=== PATIENT | male | born 1995 | race African-American/Black ===

== ENCOUNTER 2020-08-14 11:04 | Outpatient (CLI) | payer OTHER, SELFPAY | END 2020-08-14 11:05 | disposition home or self-care (01) | LOC: ANHCOVIDVC 11:04 | PROVIDERS: PCP Internal Medicine | DX: Z23 Encounter for immunization (principal) | CPT/HCPCS: 0001A; 91300 ==

== ENCOUNTER 2020-09-04 11:49 | Outpatient (CLI) | payer OTHER, SELFPAY | END 2020-09-04 11:50 | LOC: ANHCOVIDVC 11:49 | PROVIDERS: PCP Internal Medicine | DX: Z23 Encounter for immunization (principal) | CPT/HCPCS: 0002A; 91300 ==

== ENCOUNTER 2020-11-08 12:44 | Emergency (ER) | payer OTHER, SELFPAY ==
[2020-11-08 12:50] VITALS: BP 139/79; PULSE 82; RESP 16; TEMP 36.7; O2SAT 99
--- NOTE | 2020-11-08 12:53 | ED.GENADULT ---
HPI - General Adult General Chief complaint: Ear Stated complaint: ear Source: patient Mode of arrival: ambulatory Limitations: no limitations History of Present Illness HPI narrative: Patient is a 25-year-old -[place]ian male who presents to the urgent care via POV for evaluation of bilateral ear pain that is been present for approximately 20 days. Patient reports ear pain is constant and describes it as fullness with intermittent sharp pain. He also reports an intermittent buzzing or ringing sound and feeling off balance since onset. No relief with Claritin. Nothing improves or worsen symptoms. Of note, patient reports seeing his doctor, Dr. Gagnon, who prescribed him 10-day course of doxycycline for current symptoms. Patient denies improvement after finishing entire course of antibiotic treatment. Denies follow-up with PCP stating, it is just too hard to get in to him . Patient denies a history of allergic rhinitis or chronic ear problems. Related Data Home Medications Medication Instructions Recorded Confirmed No Home Medications 11/08/20 11/08/20 Allergies Allergy/AdvReac Type Severity Reaction Status Date / Time No Known Allergies Allergy Verified 11/08/20 12:45 Review of Systems Review of Systems: Narrative: CONSTITUTIONAL: Denies fever, chills, or sweats. EYES: Denies visual changes, redness, or discharge. ENT: Denies rhinorrhea, congestion, sore throat, ear drainage, decreased hearing, vertigo CARDIOVASCULAR: Denies chest pain, palpitations, or edema. RESPIRATORY: Denies cough or dyspnea. GASTROINTESTINAL: Denies abdominal pain, nausea, vomiting, or diarrhea. GENITOURINARY: Denies dysuria or hematuria. SKIN: Denies rash or itching. MUSCULOSKELETAL: Denies back pain, joint pain, or myalgia. NEUROLOGIC: Denies headache, numbness, or weakness. PSYCHIATRIC: Denies anxiety or depression. PMFSH Social History Social History Gender identity (if verbalized by the patient): Male Comments I have reviewed and agree with the patient's past medical, surgical, social, and family hx as documented by the RN. There is no relevant family history pertinent to the presenting complaint. Exam Narrative: Exam Narrative: GENERAL: Well-appearing, well-nourished, and in no acute distress. HEAD: Normocephalic, atraumatic. EYES: PERRLA and EOMI. ENT: Nares clear, no rhinorrhea or epistaxis. Mucous membranes moist. Oropharynx is without erythema, swelling, obstruction, mass, and exudate. Bilateral TMs are pearly hawkins. No evidence of bulging, erythema, or fluid. External ear canals are clear. No evidence of otitis externa. NECK: Supple. No lymphadenopathy. CHEST: Clear to auscultation. No respiratory distress. No evidence of cough upon examination. HEART: Regular rate and rhythm. No murmur heard. Normal peripheral pulses. ABDOMEN: Soft, nontender, nondistended, normal active bowel sounds. EXTREMITIES: Normal range of motion. No edema. SKIN: Warm, dry, no rash. NEURO: No focal deficits. Alert and oriented x3. Course Course Emergency Course: Refused prescription for prednisone. Vital Signs Vital signs: Vital Signs Temperature 98.1 F 11/08/20 12:50 Pulse Rate 82 11/08/20 12:50 Respiratory Rate 16 11/08/20 12:50 Blood Pressure 139/79 11/08/20 12:50 Pulse Oximetry 99 11/08/20 12:50 Temperature 98.1 F 11/08/20 12:50 Pulse Rate 82 11/08/20 12:50 Respiratory Rate 16 11/08/20 12:50 Blood Pressure 139/79 11/08/20 12:50 Pulse Oximetry 99 11/08/20 12:50 Reviewed. Due to an elevated blood pressure, I had a detailed discussion with the patient and/or guardian regarding the need for follow-up with their primary care provider within the next 3-4 days. Patient verbalized understanding and agreed. Medical Decision Making Differential Diagnosis Differential Diagnosis: Otitis externa, barotrauma, eustachian tube dysfunction, AOM, O
== END 2020-11-08 13:25 | disposition home or self-care (01) ==
PROVIDERS: Emergency Provider Nurse Practitioner Family; PCP Internal Medicine
DX: H69.93 Unspecified Eustachian tube disorder, bilateral (principal)
CPT/HCPCS: 99211; G0463

== ENCOUNTER → 2021-04-09 10:55 | Outpatient (CLI) | payer OTHER, SELFPAY ==
--- NOTE | ~2021-04-09 | MR_ITS ---
EXAMINATION: MR cervical spine wo con DATE: 04/09/2021 11:33 INDICATION: Neck pain. Injury. TECHNIQUE: Magnetic resonance imaging (MRI) of the cervical spine was performed without intravenous c ontrast. Sequences included sagittal T2-weighted FSE, sagittal STIR FSE, sagittal T1-weighted FSE, ax ial MERGE, and axial T2-weighted FSE. COMPARISON: None FINDINGS: There is hypolordosis of cervical spine. Vertebral body heights and intervertebral disc hei ghts are normal. The spinal cord signal intensity is normal. The following disc levels are specifical ly discussed: C2-C3: The disc does not extend beyond the endplate margin. There is no uncovertebral joint osteoarth ritis. There is no facet joint osteoarthritis. There is no neural foraminal stenosis. There is no jhony tral canal stenosis. C3-C4: The disc does not extend beyond the endplate margin. There is no uncovertebral joint osteoarth ritis. There is no facet joint osteoarthritis. There is no neural foraminal stenosis. There is no jhony tral canal stenosis. C4-C5: The disc does not extend beyond the endplate margin. There is mild left uncovertebral joint os teoarthritis. There is no facet joint osteoarthritis. There is mild left neural foraminal stenosis. T here is no central canal stenosis. C5-C6: There is a left central protrusion. There is mild bilateral uncovertebral joint osteoarthritis . There is no facet joint osteoarthritis. There is mild bilateral neural foraminal stenosis. There is mild central canal stenosis. C6-C7: The disc does not extend beyond the endplate margin. There is no uncovertebral joint osteoarth ritis. There is no facet joint osteoarthritis. There is no neural foraminal stenosis. There is no jhony tral canal stenosis. C7-T1: The disc does not extend beyond the endplate margin. There is no uncovertebral joint osteoarth ritis. There is no facet joint osteoarthritis. There is no neural foraminal stenosis. There is no jhony tral canal stenosis. IMPRESSION: 1. Mild cervical spondylosis. Reviewed, dictated and finalized at location A. [employer] COORDINATOR
== END ==
PROVIDERS: Visit Provider Chiropractor
DX: M47.892 Other spondylosis, cervical region (principal)
CPT/HCPCS: 72141

== ENCOUNTER 2022-01-17 08:49 | Emergency (ER) | payer OTHER, SELFPAY ==
--- NOTE | 2022-01-17 09:01 | ED.EAR ---
HPI - Ear Problem General Chief complaint: Ear Stated complaint: SORE THROAT Time Seen by Provider: 01/17/22 09:10 Source: patient and RN notes reviewed Mode of arrival: ambulatory Limitations: no limitations History of Present Illness HPI Narrative: 26-year-old male presents concern for sore throat for 2 days. He denies nasal congestion, rhinorrhea, headache, stomachache, fever, body aches, chills, sweats. Denies known sick contacts MD Complaint: other (Sore throat) Related Data Allergies Allergy/AdvReac Type Severity Reaction Status Date / Time No Known Allergies Allergy Verified 01/17/22 08:56 Review of Systems Review of Systems: CONSTITUTIONAL: Denies malaise, chills, sweats, or fever. EYES: Denies visual changes, redness, or discharge. ENT: Denies rhinorrhea, congestion, sinus pain, otalgia. Reports sore throat. CARDIOVASCULAR: Denies chest pain, palpitations, or edema. RESPIRATORY: Denies cough. Denies dyspnea. GASTROINTESTINAL: Denies abdominal pain, nausea, vomiting, diarrhea SKIN: Denies rash or itching. MUSCULOSKELETAL: Denies myalgia. NEUROLOGIC: Denies headache. All systems reviewed & are unremarkable except as noted in HPI and below PMFSH Surgical History Surgical History History of incision and drainage 03/31/21 I&D Pilonidal cyst PILONIDAL CYST 12/05/20 Family History Family History Father Hypertension Diabetes mellitus Social History Social History (System 10/17/21 @ 12:57 by Thomas Bills) Smoking status: Current every day smoker Tobacco type: cigarettes Smokeless tobacco user: chewing tobacco Alcohol intake: never Substance use: never Substance use type: does not use Gender identity (if verbalized by the patient): Male Comments At time of signature, agree with nursing past medical, surgical, social and family history. There is no relevant family history pertinent to the presenting complaint Exam Narrative: GENERAL: Well-appearing, well-nourished, and in no acute distress. HEAD: Normocephalic EYES: PERRLA, conjunctivae clear ENT: Nares clear. Mucous membranes moist. TM pearly hawkins with sharp light reflex bilaterally; no tragal tenderness. Oropharynx not erythematous without lesions. Tonsils not enlarged and without exudate, no drooling, no hoarseness, no trismus, uvula midline. NECK: Supple. No lymphadenopathy CHEST: Clear to auscultation, breath sounds equal. No wheezing, rhonchi, rales, or stridor. No respiratory distress, speaks in full sentences. HEART: Regular rate and rhythm. No murmur heard. SKIN: Warm, dry, no rash. NEURO: Alert and oriented x3. PSYCH: Normal mood and affect Course Course Emergency Course: Patient is aware of diagnosis, understands and agrees to treatment plan. Anticipatory guidance given. Patient agrees to follow-up as directed and is aware of reasons to seek care at the emergency department. Portions of this record may have been created with voice recognition software Level of Care: Express Care Visit Vital Signs Vital signs: Reviewed. Medical Decision Making MDM Narrative Medical decision making narrative: Differential diagnosis considered: Weir virus, strep pharyngitis, allergic rhinitis, upper respiratory tract infection, sinusitis, rhinosinusitis, nasopharyngitis. viral pharyngitis, otitis media, otitis externa, pneumonia, bronchitis, viral cough syndrome, viral syndrome, and influenza. Exam findings show no acute concerns or changes; patient is non-toxic appearing and is in no distress. Patient is appropriate for outpatient treatment and follow-up. Critical Care Time Critical Care Time Critical Care Time: No Discharge Plan Discharge Clinical Impression: Pharyngitis Patient Disposition: Home, Self-Care Condition: Stable Instructions: Pharyngitis (ED) Additional Instructions: Your rapid strep swab
[2022-01-17 09:05] VITALS: BP 136/92; PULSE 112; RESP 16; TEMP 37.3; O2SAT 100
== END 2022-01-17 09:24 | disposition home or self-care (01) ==
PROVIDERS: Emergency Provider Nurse Practitioner; PCP Internal Medicine
DX: J02.9 Acute pharyngitis, unspecified (principal); F17.220 Nicotine dependence, chewing tobacco, uncomplicated; F17.210 Nicotine dependence, cigarettes, uncomplicated
CPT/HCPCS: 87081; 87880; 99213; G0463

== ENCOUNTER 2022-08-08 12:40 | Emergency (ER) | payer OTHER, SELFPAY ==
--- NOTE | 2022-08-08 12:48 | ED.NAVMDI ---
HPI - Nausea/Vomiting/Diarrhea General Chief complaint: Nausea/Vomiting/Diarrhea Stated complaint: food poisoning Time Seen by Provider: 08/08/22 12:47 Source: patient Mode of arrival: ambulatory Limitations: no limitations History of Present Illness HPI Narrative: Mr. San is a 26-year-old male patient presenting to clinic today with complaints of possible food poisoning. He reports he cooked some seaman wrap filet last night and feels as though he probably undergo active. He reports that he is having vomiting x3 episodes with 5 diarrhea stools today. 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 He denies any fever or chills. Has generalized abdomen discomfort. Related Data Allergies Allergy/AdvReac Type Severity Reaction Status Date / Time No Known Allergies Allergy Verified 01/17/22 08:56 Review of Systems Review of Systems: Pertinent positives per HPI. Patient denies any fever, chills, rash, headache, visual changes, dizziness, cough, runny nose, sore throat, shortness of breath, chest pain, palpitations, nausea, vomiting, diarrhea, constipation, abdominal pain, or any urinary issues. PMFSH Surgical History Surgical History History of incision and drainage 03/31/21 I&D Pilonidal cyst PILONIDAL CYST 12/05/20 Family History Family History Father Hypertension Diabetes mellitus Social History Social History Smoking status: Current every day smoker Tobacco type: cigarettes Smokeless tobacco user: chewing tobacco Alcohol intake: never Substance use: never Substance use type: does not use Gender identity (if verbalized by the patient): Male Comments At the time of my signature, I reviewed and agree with the nursing past medical, surgical, social, and family history. There is no relevant family history pertinent to the patient complaint. Exam Narrative: General: Well-developed, well nourished, in no apparent distress. Head: Normocephalic, atraumatic. Cardio: Regular rate and rhythm, s1 and s2 normal, no murmur appreciated. Resp: Clear to auscultation bilaterally, no rhonchi, rales, wheezing or rubs. Abdomen: Soft, pliable, bowel sounds present/hyperactive in all quadrants, generalized abdomen tender to palpation, no organomegly, no CVAT tenderness. Course Course Emergency Course: Portions of this record may have been created with voice recognition software. Level of Care: Express Care Visit Vital Signs Vital signs: Vital Signs Temperature 36.2 C L 08/08/22 12:54 Pulse Rate 113 H 08/08/22 12:54 Respiratory Rate 16 08/08/22 12:54 Blood Pressure 135/100 H 08/08/22 12:54 Pulse Oximetry 100 08/08/22 12:54 Temperature 36.2 C L 08/08/22 12:54 Pulse Rate 113 H 08/08/22 12:54 Respiratory Rate 16 08/08/22 12:54 Blood Pressure 135/100 H 08/08/22 12:54 Pulse Oximetry 100 08/08/22 12:54 Vital signs reviewed MDM - Nausea/Vomiting/Diarrhea MDM Narrative Medical decision making narrative: At the time of visit patient is resting comfortably on exam table. I suspect patient has gastroenteritis/food poisoning. Prescription for Zofran was sent to the pharmacy to help alleviate the nausea and discussed use of Imodium as needed for diarrhea. Supportive measures were discussed with the patient he voiced understanding of discharge instructions and agrees to treatment plan. Differential Diagnosis Differential diagnosis: Likely traveler's diarrhea, food poisoning, gastroenteritis and dehydration Discharge Plan Discharge Clinical Impression: Gastroenteritis, Food poisoning Patient Disposition: Home, Self-Care Condition: Stable Instructions: Antibiotic Form, Gastroenteritis (ED), Food Poisoning (ED) Additional
[2022-08-08 12:54] VITALS: BP 135/100; PULSE 113; RESP 16; TEMP 36.2; O2SAT 100
== END 2022-08-08 13:05 | disposition home or self-care (01) ==
PROVIDERS: Emergency Provider Nurse Practitioner Family; PCP Internal Medicine
DX: A05.9 Bacterial foodborne intoxication, unspecified (principal); F17.210 Nicotine dependence, cigarettes, uncomplicated
CPT/HCPCS: 99213; G0463

== ENCOUNTER 2023-08-14 11:29 | Emergency (ER) | payer OTHER, SELFPAY ==
[2023-08-14 12:02] VITALS: BP 127/97; PULSE 130; RESP 16; TEMP 36.4; O2SAT 97
--- NOTE | 2023-08-14 12:27 | ED.GENADULT ---
HPI - General Adult General Chief complaint: Upper Respiratory Infection Stated complaint: SWOLLEN THROAT/COUGH Time Seen by Provider: 08/14/23 12:27 Source: patient Mode of arrival: ambulatory Limitations: no limitations History of Present Illness HPI narrative: 27-year-old male patient presents to the [facility] with complaints of sore throat for the past week. Patient states he has had been having some drainage to the back of the throat as well as a stuffy nose and now has developed a cough. Denies fevers, body aches or chills. Denies taking any [id number] medications for symptoms. Patient denies allergies. Related Data Allergies Allergy/AdvReac Type Severity Reaction Status Date / Time No Known Allergies Allergy Verified 08/14/23 11:57 Review of Systems Review of Systems: CONSTITUTIONAL: Denies fever, chills, or sweats. EYES: Denies visual changes, redness, or discharge. ENT: positive rhinorrhea, congestion, Positive sore throat, denies otalgia. CARDIOVASCULAR: Denies chest pain, palpitations, or edema. RESPIRATORY: positive cough, denies dyspnea. GASTROINTESTINAL: Denies abdominal pain, nausea, vomiting, or diarrhea. GENITOURINARY: Denies dysuria or hematuria. SKIN: Denies rash or itching. MUSCULOSKELETAL: Denies back pain, joint pain, or myalgia. NEUROLOGIC: Denies headache, numbness, or weakness. PSYCHIATRIC: Denies anxiety or depression. [facility] Surgical History Surgical History History of incision and drainage 03/31/21 I&D Pilonidal cyst PILONIDAL CYST 12/05/20 Family History Family History Father Hypertension Diabetes mellitus Social History Social History Smoking status: Current every day smoker Tobacco type: cigarettes Smokeless tobacco user: chewing tobacco Alcohol intake: never Substance use: never Substance use type: does not use Gender identity (if verbalized by the patient): Male Comments At the time of my signature I agree with nursing past medical history, surgical, social, and family history. There is no relevant family history pertinent to the presenting complaint. Exam Narrative: GENERAL: Well-appearing, well-nourished, and in no acute distress. HEAD: Normocephalic, atraumatic. EYES: PERRLA and EOMI. ENT: Nares with erythema edema noted bilaterally, no rhinorrhea or epistaxis. Mucous membranes moist. posterior pharynx with 2+ tonsillar enlargement but no erythema. There does appear to be some tonsil stones to the right tonsil. Bilateral TMs are clear no erythema or foreign bodies the canal. NECK: Supple. No lymphadenopathy CHEST: Clear to auscultation. No respiratory distress. HEART: Regular rate and rhythm. No murmur heard. Normal peripheral pulses. ABDOMEN: Soft, nontender, nondistended, normal active bowel sounds. EXTREMITIES: Normal range of motion. No edema. SKIN: Warm, dry, no rash. NEURO: No focal deficits. Alert and oriented x3. Course Course Level of Care: Express Care Visit Vital Signs Vital signs: Vital Signs Temperature 36.4 C 08/14/23 12:02 Pulse Rate 130 H 08/14/23 12:02 Respiratory Rate 16 08/14/23 12:02 Blood Pressure 127/97 H 08/14/23 12:02 Pulse Oximetry 97 08/14/23 12:02 Temperature 36.4 C 08/14/23 12:02 Pulse Rate 130 H 08/14/23 12:02 Respiratory Rate 16 08/14/23 12:02 Blood Pressure 127/97 H 08/14/23 12:02 Pulse Oximetry 97 08/14/23 12:02 Vital signs reviewed. The patient has been informed that they may have pre-hypertension or Hypertension based on a BP reading in the department. I recommend that the patient call the primary care provider listed on their discharge instructions or a physician of their choice this week to arrange follow up for further evaluation of possible pre-hypertension or Hypertension Medical
== END 2023-08-14 12:55 | disposition home or self-care (01) ==
PROVIDERS: Emergency Provider Nurse Practitioner Family
DX: J30.89 Other allergic rhinitis (principal); J02.9 Acute pharyngitis, unspecified; F17.210 Nicotine dependence, cigarettes, uncomplicated; F17.220 Nicotine dependence, chewing tobacco, uncomplicated
CPT/HCPCS: 87081; 87880; 99212; G0463